=== PATIENT | female | born 1975 | race Caucasian/White ===

== ENCOUNTER 2018-09-11 10:22 | Emergency (ER) | payer SELFPAY ==
[2018-09-11] MEDS: HYDROCODONE/APAP (5/325) TAB PO (11:18)
[2018-09-11] MEDS: ONDANSETRON (ODT) 4 MG TAB ODT (11:18)
== END 2018-09-11 13:40 | disposition home or self-care (01) ==
LOC: FTE 10:22
DX: M54.5 Low back pain (principal)
CPT/HCPCS: 72131; 81025; 99284-25